=== PATIENT | male | born 1960 | race Caucasian/White ===

== ENCOUNTER → 2024-05-06 01:46 | Outpatient (CLI) | payer MEDICARE, OTHER, SELFPAY ==
--- NOTE | 2024-05-06 07:15 | DI.US_ITS ---
Exam(s) US THYROID EXAM: US THYROID CLINICAL HISTORY: left neck mass, suspect thyroid nodule,R22.1. TECHNIQUE: Ultrasound thyroid performed using standard protocol. COMPARISON: No exams were available for comparison FINDINGS: ISTHMUS: nodule in the isthmus eccentric toward the left measuring 2.9 x 1.0 x 2.1 cm mm. Cystic wi th rounded soft tissue density within with cyst knots show color flow. Smoothly marginated, decrease d echogenicity no echogenic foci. TR 3. FNA recommended due to size. RIGHT LOBE: Size: 3.6 x 1.4 x 1.7 cm Echogenicity: Normal. Vascularity: Normal. Nodules: None. LEFT LOBE: Size: 3.9 x 1.2 x 0.9 cm Echogenicity: Normal. Vascularity: Normal. Nodules: None. OTHER FINDINGS: Adenopathy. IMPRESSION: 2.9 x 1.028 centimeter mixed cystic solid nodule in the isthmus. TI-RADS 3 . FNA recommended. DATA REPOSITORY:
== END ==
PROVIDERS: Visit Provider Otolaryngology
DX: R22.1 Localized swelling, mass and lump, neck (principal); E04.1 Nontoxic single thyroid nodule
CPT/HCPCS: 76536

== ENCOUNTER → 2024-05-27 01:08 | Outpatient (CLI) | payer MEDICARE, OTHER, SELFPAY ==
--- NOTE | 2024-05-27 07:15 | DI.US_ITS ---
Exam(s) US NEEDLE LOCAL OTHER WO RAD EXAM: US NEEDLE LOCAL OTHER WO RAD CLINICAL HISTORY: Thyroid nodule hitting criteria for biopsy TR 3,ULTRASOUND GUIDED BX,E04.1. COMPARISON: US US THYROID from 05/06/2024 TECHNIQUE: Ultrasound guidance was provided during performance a ultrasound-guided FNA of a thyroid nodule at the level the isthmus. Performed by the ENT physician. Radiologist was not present for th is procedure. FINDINGS: Images and cine acquisitions reveal the FNA needle within the targeted nodule of concern. IMPRESSION: Ultrasound-guided FNA of thyroid nodule, as above. DATA REPOSITORY:
--- NOTE | 2024-05-27 11:40 | PAPNONF_PTH ---
PATIENT: Hermes Macdonald LOC: [facility] R[facility]#:[id number] AGE/SX: 65/M ROOM: RE05/27/[address]: Alex Salmeron MD : 1960 BED: DIS: SPEC #: [id number] RECD: 05/27/24 12:58 STATUS: ROBI HARPER #: [id number] ZBIGNIEW: 05/27/24 11:[address]: Alex Salmeron DEPT: [facility] Cytology RECD BY: Kita Pringle ENTERED: 05/27/24 12:58 SP TYPE: PAPMICHAELF MYRNA DR: Unknown,Unknown Tissues: 1 - BODY FLUID CYTO-FINE NEEDLE [facility]IRATE[facility] Procedures: BODY FLUID CYTO-FINE NEEDLE ASPIRATE[facility] Comments: [id number] (PATH FNA CONSULT) (REFRIGERATED)
--- NOTE | 2024-05-27 13:09 | W.PROCNOTE ---
Date of service: 05/27/24 Time of Service: 13:09 Procedure Note Date of procedure: 05/27/24 Procedure: Ultrasound-guided FNA, left isthmus nodule, pathology present Surgeon/Proceduralist/Physician: Alex Salmeron Procedure Diagnosis: Thyroid nodule Procedure Indications: The patient has a left isthmus thyroid nodule which has not been biopsied but meets criteria for biopsy. Options were explained to the family guarding further management. They elected to undergo the above procedure. Consent was filled out and signed prior to the procedure. All questions were answered. Procedure Description: The patient was positioned supine position with his neck slightly extended. Ultrasound was used to localize the nodule after the patient had been prepped and draped in appropriate fashion. 25-gauge needle was then passed repeatedly into the thyroid nodule. The first 2 attempts failed to reveal any significant cellularity. The third attempt included attempt at aspiration of the cystic material which proved to be too thick to aspirate. Cellularity still appeared low. I therefore discussed with the patient whether we continue to aspirate or whether we waited to see if there was more specimen within the CytoLyt. After discussion, we will wait for the results of the CytoLyt analysis. He will call if he does not hear from me within 1 week. He will avoid anything strenuous today. He will call with any signs of infection or other concerns. He had no further questions. He is comfortable with the plan.
== END ==
PROVIDERS: Visit Provider Otolaryngology
DX: E04.1 Nontoxic single thyroid nodule (principal)
CPT/HCPCS: 10005; 76942; 88104

== ENCOUNTER 2025-05-05 02:08 | Outpatient (CLI) | payer MEDICARE, OTHER, SELFPAY ==
--- NOTE | 2025-05-05 07:00 | DI.US_ITS ---
Exam(s) US THYROID EXAM: US THYROID CLINICAL HISTORY: Isthmus adjacent nodule, assess for change, benign,thyroid nodule,e04.1. TECHNIQUE: Ultrasound thyroid performed using standard protocol. COMPARISON: US US THYROID from 05/06/2024 FINDINGS: ISTHMUS: 1.8 x 1.0 x 1.9 cm nodule in the isthmus which is solid, hypervascular, hypoechoic, circumscribed, wider than tall with a few macrocalcifications, TR 4. This nodule has decreased in size and has undergone FNA last year. RIGHT LOBE: Size: 4.5 x 1.2 x 1.5 cm Echogenicity: Normal. Vascularity: Normal. Nodules: None. LEFT LOBE: Size: 3.5 x 1.6 x 1.3 cm Echogenicity: Normal. Vascularity: Normal. Nodules: None. OTHER FINDINGS: None. IMPRESSION: 1.9 centimeter nodule in the isthmus, TR 4, decreased in size from prior exam likely secondary to resolution of previously noted cystic components. DATA REPOSITORY:
== END 2025-05-05 02:28 ==
LOC: DI 02:08
PROVIDERS: PCP Student in an Organized Health Care Education/Training Program; Visit Provider Otolaryngology
DX: E04.1 Nontoxic single thyroid nodule (principal)
CPT/HCPCS: 76536